=== PATIENT | male | born 1950 | race Asian ===

== ENCOUNTER 2019-02-24 13:19 | Outpatient (CLI) | payer BC ==
[2019-02-24 14:00] LABS: Bilirubin,Urine NEG (Negative); Blood,Urine NEG (Negative); Color,Urine Straw (Yellow); Urobilinogen,Urine < 2.0 mg/dL (<2.0)
[2019-02-24 14:10] LABS: WBC,Urine < 1.0 /HPF (0.0-6.0)
[2019-02-24 14:35] LABS: Alanine Aminotransferase 26 units/L (7-56); Albumin 4.4 g/dL (3.9-5); BUN/Creatinine Ratio 14; Blood Urea Nitrogen 10 mg/dL (9-20); Calcium 9.6 mg/dL (8.4-10.2); Hemolysis Index 2
[2019-02-24 14:58] LABS: Creatinine,Urine 35.4 mg/dL (0.1-20.0); Creatinine,Urine 43.1 mg/dL (0.1-20.0); Protein/Creatinine Ratio,Urine 0.74
== END 2019-02-24 13:20 | disposition home or self-care (01) ==
LOC: LAB 13:19
PROVIDERS: ATTEND Internal Medicine Nephrology
DX: I12.9 Hypertensive chronic kidney disease with stage 1 through stage 4 chronic kidney disease, or unspecified chronic kidney disease (principal); N18.1 Chronic kidney disease, stage 1
CPT/HCPCS: 36415; 80053; 81001; 82565; 82570; 82575; 84156

== ENCOUNTER 2019-03-03 14:18 | Outpatient (CLI) | payer BC ==
[2019-03-03 14:55] LABS: Creatinine,Urine 82.4 mg/dL (0.1-20.0); Protein/Creatinine Ratio,Urine 0.8
[2019-03-03 14:57] LABS: Bilirubin,Urine NEG (Negative); Blood,Urine NEG (Negative); Urobilinogen,Urine < 2.0 mg/dL (<2.0); WBC,Urine < 1.0 /HPF (0.0-6.0)
[2019-03-03 15:01] LABS: Color,Urine 952648 (Yellow)
== END 2019-03-03 14:19 | disposition home or self-care (01) ==
LOC: LAB 14:18
PROVIDERS: ATTEND Internal Medicine Nephrology
DX: I12.9 Hypertensive chronic kidney disease with stage 1 through stage 4 chronic kidney disease, or unspecified chronic kidney disease (principal); N18.1 Chronic kidney disease, stage 1
CPT/HCPCS: 81001; 82570; 84156

== ENCOUNTER 2019-05-05 11:30 | Outpatient (CLI) | payer BC ==
[2019-05-05 12:00] LABS: Mucus,Urine FEW /HPF; WBC,Urine < 1.0 /HPF (0.0-6.0)
[2019-05-05 12:10] LABS: BUN/Creatinine Ratio 10; Blood Urea Nitrogen 7 mg/dL (9-20); Calcium 9.4 mg/dL (8.4-10.2); Hemolysis Index 4
[2019-05-05 12:11] LABS: Bilirubin,Urine NEG (Negative); Blood,Urine NEG (Negative); Color,Urine Yellow (Yellow); Urobilinogen,Urine < 2.0 mg/dL (<2.0)
[2019-05-05 13:16] LABS: Creatinine,Urine 69.4 mg/dL (0.1-20.0); Protein/Creatinine Ratio,Urine 0.66
== END 2019-05-05 11:31 | disposition home or self-care (01) ==
LOC: LAB 11:30
PROVIDERS: ATTEND Internal Medicine Nephrology
DX: E11.22 Type 2 diabetes mellitus with diabetic chronic kidney disease (principal); N18.1 Chronic kidney disease, stage 1; R80.8 Other proteinuria
CPT/HCPCS: 36415; 80048; 81001; 82570; 83036; 84156

== ENCOUNTER 2020-09-06 11:00 | Day surgery (SDC) | payer BC, MEDICARE ==
[2020-08-31 14:06] LABS: Hematocrit 39.2 % (35.5-45.6); Hemoglobin 13.5 gm/dl (11.8-15.2); Mean Corpuscular HGB Conc 35 % (32-34); Mean Corpuscular Volume 83 fl (84-94); Platelet Count 258 K/mm3 (140-440); Red Blood Count 4.71 M/mm3 (3.65-5.03); Red Cell Distribution Width 15.5 % (13.2-15.2)
[2020-08-31 14:12] LABS: Alanine Aminotransferase 24 units/L (7-56); Albumin 4.4 g/dL (3.9-5); BUN/Creatinine Ratio 16; Blood Urea Nitrogen 13 mg/dL (9-20); Calcium 9.4 mg/dL (8.4-10.2); Hemolysis Index 13
[~2020-09-06 11:00] MED LIST: BACITRACIN ZINC OINT 28.4 GM TP ONE; BUPIVACAINE/PF (0.25%) 2.5 MG/ML 30 ML VIAL INFILTRATI ONE; LACTATED RINGERS 1,000 ML IV SCH; NEOMY 3.5 MG/BACIT 400 UNITS/POLY B 5000 UNITS OINT 15 GM TP ONE; SODIUM CHLORIDE 0.9% IRR 1,500 ML BOTTLE IR ONE
[2020-09-06] MEDS ORDERED: BACTERIOSTATIC SODIUM CHLORIDE 0.9% 30 ML VIAL INFILTRATI ONE (11:04)
[2020-09-06] MEDS ORDERED: HYDROmorphone 1 MG/1 ML INJ IV PRN (11:30)
[2020-09-06] MEDS ORDERED: ONDANSETRON 4 MG/2 ML INJ IV PRN (11:30)
[2020-09-06] MEDS ORDERED: ACETAMINOPHEN 325 MG TAB PO ONE (11:36)
[2020-09-06] MEDS ORDERED: MAGNESIUM OXIDE 400 MG TAB PO ONE (11:36)
--- NOTE | 2020-09-06 11:36 | Anesthesia Day of Surgery ---
Anesthesia Day of Surgery - Day of Surgery Patient Examined: Yes Patient H&P Reviewed: Yes Patient is NPO: Yes
--- NOTE | 2020-09-06 11:38 | Anesthesia Consultation ---
Anesthesia Consult and Med Hx Date of service: 09/06/20 - Airway Anesthetic Teeth Evaluation: Good ROM Head & Neck: Adequate Mental/Hyoid Distance: Adequate Mallampati Class: Class II Intubation Access Assessment: Good - Pre-Operative Health Status ASA Pre-Surgery Classification: ASA3 Proposed Anesthetic Plan: General - Pulmonary Hx Smoking: No Hx Asthma: No Hx Respiratory Symptoms: No (+2FS) COPD: No Hx Pneumonia: No Hx Sleep Apnea: Yes (HIRO HIGH RISK ON PRESCREEN. Probable per ) - Cardiovascular System Hx Hypertension: Yes (Pt reports negative ETT five years ago) Hx Heart Attack/AMI: No Hx Pacemaker: No Hx Internal Defibrillator: No Hx Heart Murmur: No - Central Nervous System Hx Seizures: No Hx Back Pain: No Hx Psychiatric Problems: No - Gastrointestinal Hx Gastroesophageal Reflux Disease: Yes - Endocrine Hx Renal Disease: No Hx End Stage Renal Disease: No Hx Cirrhosis: No Hx Liver Disease: No - Hematic Hx Anemia: No Hx Sickle Cell Disease: No - Other Systems Hx Alcohol Use: Yes (RARE-WINE) Hx Substance Use: No Hx Cancer: No Hx Obesity: No
[2020-09-06] MEDS ORDERED: CELECOXIB 200 MG CAP PO NR (12:00)
[2020-09-06] MEDS ORDERED: GABAPENTIN 300 MG CAP PO NR (12:00)
[2020-09-06] MEDS ORDERED: ONDANSETRON 4 MG/2 ML INJ ONE (12:17)
[2020-09-06] MEDS ORDERED: fentaNYL 100 MCG/2 ML INJ ONE (12:17)
[2020-09-06] MEDS ORDERED: GLYCOPYRROLATE 0.4 MG/2 ML INJ ONE (12:17)
[2020-09-06] MEDS ORDERED: propofoL 200 MG/20 ML VIAL IV ONE (12:17)
[2020-09-06] MEDS ORDERED: dexAMETHasone 20 MG/5 ML VIAL ONE (12:17)
[2020-09-06] MEDS ORDERED: PHENYLEPHRINE/NS 1,000 MCG/10 ML SYRINGE (OR USE) IV ONE (12:17)
[2020-09-06] MEDS ORDERED: ePHEDrine SULFATE 50 MG/1 ML INJ ONE (12:17)
[2020-09-06] MEDS ORDERED: ceFAZolin/Water 2 GM/20 ML 2 GM/20 ML SYRINGE IV NR (12:19)
[2020-09-06] MEDS ORDERED: LIDOCAINE MPF (2%) 20 MG/1 ML VIAL 5 ML ONE (13:00)
[2020-09-06] MEDS ORDERED: ESMOLOL 100 MG/10 ML INJ IV ONE (13:03)
[2020-09-06] MEDS ORDERED: SODIUM CHLORIDE 0.9% IRR 1,500 ML BOTTLE IR ONE (13:21)
[2020-09-06] MEDS: HYDROmorphone 1 MG/1 ML INJ IV PRN ×4 (13:40→14:42)
--- NOTE | 2020-09-06 14:12 | Post Operative Note ---
Date of procedure: 09/06/20 Pre-op diagnosis: balanitis Post-op diagnosis: same Findings: as abopve Procedure: circ Anesthesia: GETA Surgeon: JUANIS MARCUS Estimated blood loss: minimal Pathology: list (foreskin) Specimen disposition: to lab
--- NOTE | 2020-09-06 14:13 | Discharge Summary ---
Short Stay Discharge Plan Activity: other (no sex ) Weight Bearing Status: Full Weight Bearing Diet: low fat, low cholesterol, low salt Wound: open to air Special Instructions: other (remove dressing tonight ) Follow up with: MICH OJEDA MD [Primary Care Provider] - 7 Days JUANIS MARCUS MD [Staff Physician] - 14 Days
--- NOTE | 2020-09-06 14:16 | Operative Report ---
PREOPERATIVE DIAGNOSES: Severe balanitis and bleeding. POSTOPERATIVE DIAGNOSES: Severe balanitis and bleeding. PROCEDURE: Circumcision, sleeve technique. SURGEON: Dr. Mcdermott. ANESTHESIA: General. FINDINGS: This is a gentleman with severe pain and intermittent discomfort and bleeding from the inner foreskin, now presents for circumcision. DESCRIPTION OF PROCEDURE: The patient was brought to the operating room and placed on the operating table. Following induction of anesthesia, placed in supine position, prepped and draped in usual sterile fashion. Two circumferential incisions were made in the penile skin and inner foreskin. These were connected dorsally. The skin was excised. Hemostasis was assured with cautery and 3-0 Vicryl ties. Sutures were placed at 12, 3, 6, and 9 o'clock position. Each quadrant was sutured with 3-0 chromic. The patient tolerated the procedure well. No significant complications, brought to recovery room in stable condition. Minimal blood loss. JOB# [id number] PAUL/KAE
[2020-09-06 14:57] VITALS: BP 132/72
--- NOTE | 2020-09-06 17:44 | Post Anesthesia Evaluation ---
- Post Anesthesia Evaluation Patient Participated: Yes Airway Patent: Yes Stable Respiratory Function: Yes Nausea/Vomiting: No Temp > 96.8F: Yes Pain Manageable: Yes Adequeate Hydration: Yes Anesthesia Complications: No Block Receding Appropriately: Not Applicable Patient on Ventilator: No
== END 2020-09-06 11:01 | disposition home or self-care (01) ==
LOC: OR 11:00
PROVIDERS: ATTEND Urology
DX: N48.1 Balanitis (principal); E11.9 Type 2 diabetes mellitus without complications; E78.00 Pure hypercholesterolemia, unspecified; I10 Essential (primary) hypertension; G47.30 Sleep apnea, unspecified; K21.9 Gastro-esophageal reflux disease without esophagitis; N40.1 Benign prostatic hyperplasia with lower urinary tract symptoms; Z20.828 Contact with and (suspected) exposure to other viral communicable diseases; Z79.899 Other long term (current) drug therapy; Z79.82 Long term (current) use of aspirin; Z79.4 Long term (current) use of insulin; Z98.41 Cataract extraction status, right eye; Z98.42 Cataract extraction status, left eye; M19.90 Unspecified osteoarthritis, unspecified site; Z72.89 Other problems related to lifestyle; Z98.890 Other specified postprocedural states; Z88.0 Allergy status to penicillin
CPT/HCPCS: 36415; 54161; 80053; 82962; 85027; 88304; J0690; J1100; J1170; J2370; J2405; J2704; J3010; J7120; U0003; A6250

== ENCOUNTER 2021-09-27 08:11 | Outpatient (CLI) | payer BC, MEDICARE ==
[2021-09-27 09:19] LABS: Hematocrit 43.7 % (35.5-45.6); Hemoglobin 14.4 gm/dl (11.8-15.2); Mean Corpuscular HGB Conc 33 % (32-34); Mean Corpuscular Volume 84 fl (84-94); Platelet Count 252 K/mm3 (140-440); Red Cell Distribution Width 14.9 % (13.2-15.2)
[2021-09-27 10:01] LABS: Alanine Aminotransferase 23 units/L (7-56); Albumin 4.4 g/dL (3.9-5); Blood Urea Nitrogen 13 mg/dL (9-20); Calcium 9.5 mg/dL (8.4-10.2); HDL Cholesterol 50 mg/dL (40-59); Hemolysis Index 5; LDL Cholesterol,Direct 93 mg/dL (50-130)
[2021-09-27 10:07] LABS: BUN/Creatinine Ratio 22
[2021-09-27 11:20] LABS: Bilirubin,Urine NEG (Negative); Blood,Urine NEG (Negative); Color,Urine Yellow (Yellow); Mucus,Urine FEW /HPF; RBC,Urine < 1.0 /HPF (0.0-6.0); Urobilinogen,Urine < 2.0 mg/dL (<2.0)
[2021-09-27 12:52] LABS: Creatinine,Urine 102.7 mg/dL (0.1-20.0); Microalbumin/Creatinine Ratio 339.8 ug/mg
== END 2021-09-27 08:12 | disposition home or self-care (01) ==
LOC: LAB 08:11
PROVIDERS: ATTEND Internal Medicine
DX: I10 Essential (primary) hypertension (principal); D50.8 Other iron deficiency anemias; E78.2 Mixed hyperlipidemia; E11.9 Type 2 diabetes mellitus without complications
CPT/HCPCS: 36415; 80053; 80061; 81001; 82043; 82607; 83735; 85027; 86803

== ENCOUNTER 2022-01-10 09:48 | Outpatient (CLI) | payer BC ==
[2022-01-10 10:30] LABS: Blood Urea Nitrogen 13 mg/dL (9-20); Calcium 9.6 mg/dL (8.4-10.2); Hemolysis Index 3
[2022-01-10 10:32] LABS: BUN/Creatinine Ratio 19
== END 2022-01-10 09:49 | disposition home or self-care (01) ==
LOC: LAB 09:48
PROVIDERS: ATTEND Internal Medicine
DX: E11.9 Type 2 diabetes mellitus without complications (principal)
CPT/HCPCS: 36415; 80048; 83036

== ENCOUNTER 2022-04-04 13:19 | Outpatient (CLI) | payer BC ==
[2022-04-04 14:56] LABS: Alanine Aminotransferase 29 units/L (7-56); Albumin 4.9 g/dL (3.9-5); Blood Urea Nitrogen 15 mg/dL (9-20); Calcium 10.2 mg/dL (8.4-10.2); Chol/HDL Ratio 3.13 %; HDL Cholesterol 44 mg/dL (40-59); Hemolysis Index 8; LDL Cholesterol,Direct 81 mg/dL (50-130)
[2022-04-04 15:05] LABS: BUN/Creatinine Ratio 21
[2022-04-04 15:51] LABS: Basophils % (Auto) 0.4 % (0.0-1.8); Eosinophils # (Auto) 0.1 K/mm3 (0.0-0.4); Eosinophils % (Auto) 1.6 % (0.0-4.3); Hematocrit 44.8 % (35.5-45.6); Hemoglobin 14.8 gm/dl (11.8-15.2); Lymphocytes # (Auto) 1.7 K/mm3 (1.2-5.4); Lymphocytes % (Auto) 21.3 % (13.4-35.0); Mean Corpuscular HGB Conc 33 % (32-34); Mean Corpuscular Volume 84 fl (84-94); Monocytes # (Auto) 0.7 K/mm3 (0.0-0.8); Monocytes % (Auto) 8.3 % (0.0-7.3); Platelet Count 240 K/mm3 (140-440); Red Cell Distribution Width 14.7 % (13.2-15.2)
[2022-04-04 16:16] LABS: Erythrocyte Sedimentation Rate 4 mm/Hr (0-20)
== END 2022-04-04 13:20 | disposition home or self-care (01) ==
LOC: LAB 13:19
PROVIDERS: ATTEND Internal Medicine
DX: I10 Essential (primary) hypertension (principal); E78.2 Mixed hyperlipidemia; E11.42 Type 2 diabetes mellitus with diabetic polyneuropathy; R25.2 Cramp and spasm; M25.50 Pain in unspecified joint; D50.8 Other iron deficiency anemias; Z79.899 Other long term (current) drug therapy
CPT/HCPCS: 36415; 80053; 80061; 82607; 82747; 83735; 85025; 85652; 86140; 86200; 86431

== ENCOUNTER 2022-04-08 08:17 | Outpatient (CLI) | payer BC ==
--- NOTE | 2022-04-08 11:56 | Ultrasound Report ---
ULTRASOUND ABDOMEN, COMPLETE INDICATION / CLINICAL INFORMATION: E65. Liver disease. COMPARISON: None available. FINDINGS: PANCREAS: No significant abnormality. ABDOMINAL AORTA: No significant abnormality. IVC: No significant abnormality. LIVER: The liver is normal measuring 14.5 cm with diffusely echogenic appearance. Normal hepatopedal blood flow within the main portal vein. GALLBLADDER: A small amount of sludge is noted in the gallbladder. No evidence of gallstones, wall th ickening, or pericholecystic fluid. BILE DUCTS: No significant abnormality. Common bile duct measures 3 mm. KIDNEYS: Right: The right kidney measures 10.9 cm. No significant abnormality. Left: The left kidney measures 10.9 cm. No significant abnormality. SPLEEN: The spleen measures 9.9 cm. No significant abnormality. FREE FLUID: None. ADDITIONAL FINDINGS: None. IMPRESSION: 1. Diffusely echogenic appearance of the liver, most commonly seen with steatosis. 2. Small amount of sludge noted in the gallbladder. No evidence of gallstones. Scribed by: Kourtney Hernandez RDMS, ARETHA, NEGIN Scribed: 04/08/2022 10:22 AM I have reviewed the images, agree with this report, and edited this report as needed. Signer Name: Wai Casiano MD Signed: 04/08/2022 11:48 AM Workstation Name: [employer]
== END 2022-04-08 08:18 | disposition home or self-care (01) ==
LOC: US 08:17
PROVIDERS: ATTEND Internal Medicine
DX: K76.0 Fatty (change of) liver, not elsewhere classified (principal); E65 Localized adiposity
CPT/HCPCS: 76700

== ENCOUNTER 2022-05-01 12:47 | Outpatient (CLI) | payer BC ==
--- NOTE | 2022-05-01 13:35 | XRay Report ---
Bilateral knees INDICATION: Knee pain FINDINGS: There is tricompartmental degenerative change in bilateral knees with joint space narrowing most significant in the medial compartment and patellofemoral joint. No acute fracture or large join t effusion. Signer Name: Nimesh Arias MD Signed: 05/01/2022 1:31 PM Workstation Name: [employer]
== END 2022-05-01 12:48 | disposition home or self-care (01) ==
LOC: XRAY 12:47
PROVIDERS: ATTEND Orthopaedic Surgery
DX: M17.0 Bilateral primary osteoarthritis of knee (principal)
CPT/HCPCS: 73565

== ENCOUNTER 2022-05-06 11:20 | Outpatient (CLI) | payer BC ==
--- NOTE | 2022-05-06 14:28 | XRay Report ---
LUMBAR SPINE 5 VIEWS INDICATION: M54.50 COMPARISON: No relevant prior imaging study available. FINDINGS: VERTEBRAE: No acute fracture. Normal alignment. DISC SPACES: Disc space height is maintained with multilevel mild osteophyte formation. FACET JOINTS: No significant abnormality. SOFT TISSUES: There is mild aortic atherosclerosis. No other significant abnormality. ADDITIONAL FINDINGS: No additional significant findings. IMPRESSION: Mild lumbar spondylosis. BILATERAL SHOULDERS 6 VIEWS INDICATION / CLINICAL INFORMATION: M25.511 COMPARISON: None available. FINDINGS: BONES and JOINT(S): No acute fracture or subluxation. No significant arthritis. SOFT TISSUES: No significant abnormality. ADDITIONAL FINDINGS: None. IMPRESSION: No significant abnormality of the shoulders. Signer Name: Luis Wadsworth MD Signed: 05/06/2022 2:24 PM Workstation Name: [employer]
== END 2022-05-06 11:21 | disposition home or self-care (01) ==
LOC: XRAY 11:20
PROVIDERS: ATTEND Orthopaedic Surgery
DX: M43.16 Spondylolisthesis, lumbar region (principal); M25.78 Osteophyte, vertebrae; I70.0 Atherosclerosis of aorta; M25.512 Pain in left shoulder; M25.511 Pain in right shoulder
CPT/HCPCS: 72110

== ENCOUNTER 2022-05-24 06:57 | Day surgery (SDC) | payer BC ==
[2022-05-24] MEDS ORDERED: SODIUM CHLORIDE 0.9% 1000 ML 1,000 ML IV SCH (07:00)
--- NOTE | 2022-05-24 08:03 | Anesthesia Consultation ---
Anesthesia Consult and Med Hx Date of service: 05/24/22 - Airway Anesthetic Teeth Evaluation: Good ROM Head & Neck: Adequate Mental/Hyoid Distance: Adequate Mallampati Class: Class II Intubation Access Assessment: Probably Good - Pulmonary Exam CTA: Yes - Pre-Operative Health Status ASA Pre-Surgery Classification: ASA2 Proposed Anesthetic Plan: MAC - Pulmonary Hx Smoking: No Hx Asthma: No Hx Respiratory Symptoms: No (+2FS) COPD: No Hx Pneumonia: No Hx Sleep Apnea: Yes (HIRO HIGH RISK ON PRESCREEN. Probable per ) - Cardiovascular System Hx Hypertension: Yes (Pt reports negative ETT five years ago) Hx Heart Attack/AMI: No Hx Pacemaker: No Hx Internal Defibrillator: No Hx Heart Murmur: No - Central Nervous System Hx Neuromuscular Disorder: No Hx Seizures: No Hx Back Pain: No Hx Psychiatric Problems: No - Gastrointestinal Hx Gastroesophageal Reflux Disease: Yes - Endocrine Hx Renal Disease: No Hx End Stage Renal Disease: No Hx Cirrhosis: No Hx Liver Disease: No Hx Non-Insulin Dependent Diabetes: Yes Hx Thyroid Disease: No - Hematic Hx Anemia: No Hx Sickle Cell Disease: No - Other Systems Hx Alcohol Use: Yes (RARE-WINE) Hx Substance Use: No Hx Cancer: No Hx Obesity: No - Additional Comments Anesthesia Medical History Comments: Pt. denied previous anethesia complications
--- NOTE | 2022-05-24 08:04 | Anesthesia Day of Surgery ---
Anesthesia Day of Surgery - Day of Surgery Patient Examined: Yes Patient H&P Reviewed: Yes Patient is NPO: Yes Beta Blockers: No Cardiac Clearance: No Pulmonary Clearance: No Phillip's Test: N/A
[2022-05-24] MEDS ORDERED: propofoL 200 MG/20 ML VIAL IV ONE ×2 (08:35→09:03)
[2022-05-24] MEDS ORDERED: fentaNYL 100 MCG/2 ML INJ ONE (08:35)
[2022-05-24] MEDS ORDERED: LIDOCAINE MPF (2%) 20 MG/1 ML VIAL 5 ML ONE (08:35)
[2022-05-24] MEDS ORDERED: ONDANSETRON 4 MG/2 ML INJ ONE (08:35)
--- NOTE | 2022-05-24 09:26 | Procedure Note ---
Date of procedure: 05/24/22 Pre-op diagnosis: GERD/ Colon POlyp Screening Post-op diagnosis: other (Mild to Moderate ErosiveEsophagitis/ R/O Eosinophilic Esophagitis/ Gastric Erosion and Gastritis (antrum)/ Mild Gastroparesis/ Several, Small (possibly Hyperplastic Polyps)/ No Diverticular disease/ Minor,Internal Hemorrhoids) Procedure: EGD with Biopsy/ Colonoscopy with Cold biopsy Anesthesia: [facility] [place] Surgeon: ZACHARY CONTRERAS Estimated blood loss: minimal Pathology: list Specimen disposition: to lab Condition: stable Disposition: same day (Treat with PPI and Reglan; avoid aspirin and NSAID for 5 days, otherwise reume previous medication and F/U in 1 to 2 weeks ([phone]).)
--- NOTE | 2022-05-24 09:32 | Operative Report ---
DATE OF SURGERY: 05/24/2022 PROCEDURE PERFORMED: Colonoscopy with cold biopsy. INDICATIONS: The patient had an EGD done prior to the colonoscopy, which showed mild to moderate erosive esophagitis and gastric erosion and gastritis as well as some mild diabetic gastroparesis. DESCRIPTION OF PROCEDURE: Colonoscopy was done after getting informed consent. Initial rectal examination was unremarkable. The instrument was passed through the rectum onto the cecum, which was identified by the ileocecal valve and appendiceal orifice. Visualization was good. Cecum, ascending colon, transverse colon, descending colon showed normal mucosa. There were a few minor very small colon polyps noted in the rectosigmoid area, possibly hyperplastic in type that were removed by cold biopsy with minimal bleeding and the rectum showed some minor internal hemorrhoid on the retroverted view. ASSESSMENT: Colon polyp screening few small rectosigmoid polyps, possibly hyperplastic. No diverticular disease noted. Minor internal hemorrhoid. PLAN: To encourage the patient to avoid aspirin and aspirin-related products for the next few days. Treat the patient with PPI as well as Reglan because of the EGD findings of erosive esophagitis, gastric erosion, gastritis and mild diabetic gastroparesis and otherwise resume previous medication; have the patient follow up in the office in 1-2 weeks' time. Procedure was done in the GI lab with assistance of the GI lab team, which included the GI nurse, the chemical radiation technician and with assistance of Anesthesia. TID: [id number] RECEIPT: [id number] SUSAN/CHRIS
--- NOTE | 2022-05-24 11:11 | Post Anesthesia Evaluation ---
- Post Anesthesia Evaluation Patient Participated: Yes Airway Patent: Yes Stable Respiratory Function: Yes Nausea/Vomiting: No Temp > 96.8F: Yes Pain Manageable: Yes Adequeate Hydration: Yes Anesthesia Complications: No
[2022-05-24 17:55] VITALS: BP 134/77
--- NOTE | 2022-05-25 07:42 | Operative Report ---
DATE OF SURGERY: 05/24/2022 PROCEDURE PERFORMED: EGD with biopsy. INDICATIONS: This is a 71-year-old gentleman originally from [facility] who has been having GERD symptoms. He has an underlying history of diabetes mellitus and hypertension, but no history of coronary artery disease. EGD was done to assess for his upper GI symptoms and for any significant upper GI pathology. DESCRIPTION OF PROCEDURE: Procedure was done after getting informed consent with MAC anesthesia. The instrument was passed through the hypopharynx into the esophagus, which showed some [id number] erosive esophagitis. Photodocumentation and biopsy was done from the distal esophagus as well as from the mid esophagus to assess for the severity of the erosive esophagitis and to rule out for eosinophilic esophagitis. Stomach showed antral erosion and gastritis, but no ulcers were noted either in the straight or the retroverted view. The pylorus is patent. There was some evidence diabetic gastroparesis. The duodenum in the first and the second portion appeared normal. Biopsy was done from the gastric antrum, gastric body to rule out for H. pylori and atrophic gastritis. Additional biopsy was also done from the angular incisura with some minimal bleeding. ASSESSMENT: GERD symptoms, gastric erosion, gastritis, most pronounced in the antrum, mild to moderate erosive esophagitis, rule out eosinophilic esophagitis and mild diabetic gastroparesis. There was no gastric outlet obstruction noted. PLAN: To treat the patient with PPI as well as Reglan. Have the patient avoid aspirin and aspirin-related products for the next few days and to do a colonoscopy as part of colon polyp screening. Have the patient follow up in the office in 1-2 weeks' time. TID: [id number] RECEIPT: [id number] SUSAN/NIDA
== END 2022-05-24 10:00 | disposition home or self-care (01) ==
LOC: GIO 06:57
DX: Z12.11 Encounter for screening for malignant neoplasm of colon (principal); K64.8 Other hemorrhoids; K29.70 Gastritis, unspecified, without bleeding; K21.00 Gastro-esophageal reflux disease with esophagitis, without bleeding; E11.43 Type 2 diabetes mellitus with diabetic autonomic (poly)neuropathy; K31.84 Gastroparesis; K63.89 Other specified diseases of intestine; E78.00 Pure hypercholesterolemia, unspecified; I10 Essential (primary) hypertension; G47.33 Obstructive sleep apnea (adult) (pediatric); M19.90 Unspecified osteoarthritis, unspecified site; Z88.8 Allergy status to other drugs, medicaments and biological substances; Z79.899 Other long term (current) drug therapy; Z98.41 Cataract extraction status, right eye; Z98.42 Cataract extraction status, left eye; Z72.89 Other problems related to lifestyle; Z98.890 Other specified postprocedural states
CPT/HCPCS: 43239; 45380; 82962; 88305; J2405; J2704; J3010; J7030; 88342

== ENCOUNTER 2022-05-30 09:23 | Outpatient (CLI) | payer BC ==
--- NOTE | 2022-05-30 13:59 | Magnetic Resonance Report ---
MRI RIGHT SHOULDER WITHOUT CONTRAST INDICATION / CLINICAL INFORMATION: M25.511 PAIN IN RIGHT SHOULDER. TECHNIQUE: Multiplanar, multisequence MR images were obtained. No contrast used. COMPARISON: None available. FINDINGS: SUPRASPINATUS: Partial-thickness articular sided tear of the anterior distal supraspinatus tendon inv olving about 50% of the tendon thickness. No retraction. No muscle atrophy. INFRASPINATUS: No significant abnormality. SUBSCAPULARIS: No significant abnormality. BICEPS TENDON, LONG HEAD: No significant abnormality. GLENOID LABRUM: No significant abnormality. ARTICULAR CARTILAGE: No significant abnormality. JOINT SPACE / CAPSULE: No significant abnormality. ACROMION / A.C. JOINT: Mild AC joint degenerative arthrosis. SUBACROMIAL/SUBDELTOID SPACE: Trace fluid. BONES: No significant bone marrow edema. No fracture. No osseous lesion. SOFT TISSUES: No significant abnormality. ADDITIONAL FINDINGS: None. IMPRESSION: 1. Supraspinatus partial-thickness articular sided tear. Signer Name: Jovan Salazar MD Signed: 05/30/2022 1:55 PM Workstation Name: [employer]
--- NOTE | 2022-05-30 16:07 | Magnetic Resonance Report ---
MRI LUMBAR SPINE 05/30/2022 INDICATION / CLINICAL INFORMATION: M54.50 LOW BACK PAIN,UNSPECIFIED. COMPARISON: None available. FINDINGS: GENERAL OBSERVATIONS: Unenhanced MR images of the lumbar spine were obtained. There is no evidence of acute abnormality. Vertebral body height and alignment is well preserved. [id number] ANALYSIS: L5-S1: Minimal diffuse disc bulging and mild facet degenerative changes. L4-5: Mild diffuse disc bulging with small dorsal annular fissure. No evidence of disc herniation or nerve root compression. L3-4: Unremarkable. L2-3: Unremarkable. L1-2: Unremarkable. BONE MARROW: No significant abnormality SPINAL CORD/CAUDA EQUINA: Normal PARASPINAL SOFT TISSUES: No significant abnormality. IMPRESSION: Minimal degenerative change, with no evidence of stenosis or nerve root compression. Signer Name: Phillip Bentley MD Signed: 05/30/2022 4:02 PM Workstation Name: [employer]
== END 2022-05-30 09:24 | disposition home or self-care (01) ==
LOC: MRI 09:23
PROVIDERS: ATTEND Orthopaedic Surgery
DX: M47.817 Spondylosis without myelopathy or radiculopathy, lumbosacral region (principal); M51.27 Other intervertebral disc displacement, lumbosacral region; M19.011 Primary osteoarthritis, right shoulder
CPT/HCPCS: 72148